=== PATIENT | male | born 1955 | race Caucasian/White ===

== ENCOUNTER → 2019-04-17 | Outpatient (CLI) | payer MEDICARE, BC ==
[~2019-04-17] MED LIST: ACET500T33 PO; ASPI81TA59 PO; ATEN50TA PO; CLOP75TA PO; CRESTOR10 MG PO; EZET10TA18 PO; HYDR-2679 PO; INSU100I13 SQ; INSU100V8 SQ; LEVO112T4 PO; LEVO137T3 PO; LOSA-73 PO
--- NOTE | 2019-04-17 18:56 | PAIN ---
DATE OF SERVICE: INITIAL CONSULTATION FOR PAIN CLINIC CHIEF COMPLAINT: Low back and bilateral lower extremity pain. HISTORY OF PRESENT ILLNESS: This is a 64-year-old male who presents with history of pain in the low back and bilateral lower extremities for many years, worse over the past 5-6 years with increasing pain in the low back status post lumbar laminectomy in 2003 with good results at that time. The patient reports the pain has returned in the low back and bilateral lower extremities, mostly in the posterior gluteus, posterior thighs, posterior calves. The patient reports it is sharp, it is a constant, stabbing, throbbing, shooting, radiating, tingling, cramping and burning and aching and cold at times. The patient reports it awakens him from sleep about 3 or 4 times a night, does not affect the bowel or bladder control, does affect his ability to walk. He is using a cane in his right hand. The patient reports he has had epidural injections in the past and done very well, also physical therapy in the past and chiropractic treatments. He is doing some exercise currently, but no formal physical therapy recently. The patient rates his disability from 0-10, 10 being the worst, as an 8 on a scale of 10 with family and home responsibilities, 8 with recreation and social activity, occupation and sexual behavior and life support activities, and 5 with self-care activities. The patient has not had any recent MRI scan but older scan showing significant spinal stenosis and degenerative disk disease as well as previous surgery. The patient reports no loss of motor function, but significant fatigability of the lower extremities with any ambulation greater than 5-10 minutes, better with sitting or resting, but again is awakening him from sleep about 3 or 4 times a night and has been for the past several months. PAST MEDICAL HISTORY: Significant for diabetes, Graves' disease, hypertension, gastroesophageal reflux, kidney insufficiency, coronary artery disease, arthritis. PREVIOUS SURGERY: Include bilateral cataract extractions, ankle surgery, appendectomy, lumbar surgery in 2003, coronary artery bypass graft x 5 in 2016 and cardiac stents placed in 2017. The patient was placed on Plavix at that time. CURRENT MEDICATIONS: Include Plavix, levothyroxine, and Crestor, Zetia, losartan, daily baby aspirin, insulin. ALLERGIES: The patient has no known drug allergies. FAMILY HISTORY: Significant for diabetes, heart disease, hypertension. SOCIAL HISTORY: The patient drinks alcohol very rarely. Does not smoke or use any illegal, illicit or recreational drugs. He is , lives with his spouse and lives locally in [place], [place]. REVIEW OF SYSTEMS: The patient's review of systems is positive for those items mentioned in history of present illness. All systems reviewed and otherwise negative. It is complete, full and well documented on the patient's chart. PHYSICAL EXAMINATION: VITAL SIGNS: The patient's blood pressure 131/62, pulse 85, respirations 18, temperature 97.9 degrees Fahrenheit, height is 5 feet 8 inches, weight is 220 pounds. GENERAL: The patient is awake, alert, oriented, appropriate, very pleasant demeanor. HEENT: Shows normocephalic, atraumatic. Extraocular movements are intact and symmetrical. Oral cavity: Mucous membranes are moist and pink. Dentition is intact. NECK: Shows anterior throat supple without palpable lymphadenopathy noted. Swallow reflex symmetrical. CHEST: Shows normal on inspection. Breath sounds clear to auscultation bilaterally. HEART: Shows S1, S2 clear. No murmurs auscultated. ABDOMEN: Soft, nontender, nondistended. No palpable organomegaly is noted. No rebound or guarding demonstrated. BACK: Shows spine grossly in the midline. Normal appearing thoracic kyphosis and lumbar lordotic curvature is slightly flattened with well-healed surgical scarring noted. Lumbar paraspinous muscle shows symmetrical on inspection, on palpation shows some moderate tenderness diffusely bilaterally, but only diffusely without radiation. The patient has good rotational motion of lumbar spine, both laterally as well as extension and flexion without difficulty. Lower extremities show deep tendon reflexes at 1+ in the patellar and tendo-calcaneus tendon. Motor exam is strong with dorsiflexion and extension rated at 5/5 and equal and symmetrical bilaterally with quadriceps, hamstring and dorsiflexion and extension. Peripheral pulses are 1+ posterior tibia. No peripheral edema is noted. Lower extremities are warm and dry to touch, equal in color and appearance. Straight leg raise noted to be negative for reproduction of radicular symptoms bilaterally. Gaenslen's and Darwin's maneuvers are negative bilaterally as well. The patient is able to stand, has difficulty standing from a seated position as he favors his right lower extremity using a cane in his right hand and does walk with a limp with his right leg favored. The patient's skin shows warm and dry, good turgor. No edema. No sores, rashes or bruising. IMPRESSION: 1. This is a 64-year-old male with a long history of low back pain, bilateral lower extremity pain in a radicular fashion. 2. MRI scan as noted. 3. Coronary artery disease. 4. Diabetes. 5. Hypertension. 6. Arthritis. PLAN: Options were discussed with the patient including conservative medical management, physical therapies, interventional techniques and he would like to proceed with interventional techniques. We will check with his athletic monitor first to clear having him hold the Plavix for 7 days prior to potential caudal epidural steroid injection. The patient will keep taking this until notified. We will wait to get clearance from his athletic monitor. If deemed safe and appropriate, we will have him hold this for 7 days and return for caudal epidural steroid injection at that time. MANA BAUGH MD DR: CHANCE/petty JOB#: [id number] / [id number]
== END | disposition home or self-care (01) ==
LOC: PNCL 08:33
PROVIDERS: ATTEND Anesthesiology
DX: M54.5 Low back pain (principal); M79.662 Pain in left lower leg; M79.661 Pain in right lower leg; E11.9 Type 2 diabetes mellitus without complications; E05.00 Thyrotoxicosis with diffuse goiter without thyrotoxic crisis or storm; I10 Essential (primary) hypertension; I25.10 Atherosclerotic heart disease of native coronary artery without angina pectoris; K21.9 Gastro-esophageal reflux disease without esophagitis; M19.90 Unspecified osteoarthritis, unspecified site; Z95.1 Presence of aortocoronary bypass graft; Z90.49 Acquired absence of other specified parts of digestive tract; Z72.89 Other problems related to lifestyle
CPT/HCPCS: G0463

== ENCOUNTER → 2019-05-12 | Outpatient (CLI) | payer MEDICARE, BC ==
[~2019-05-12] MED LIST changes: +IOHEXOL 180 MG/ML 10 ML VIAL. ONE; +methylPREDNISolone ACETATE 40 MG/ML VIAL. ONE; +methylPREDNISolone ACETATE 80 MG/ML VIAL. ONE
--- NOTE | 2019-05-13 05:04 | PAIN ---
DATE OF SERVICE: 05/12/2019 PHI DIAGNOSES: Lumbar radiculopathy with lumbar degenerative disk disease, lumbar spinal stenosis and post-lumbar laminectomy syndrome. 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 The patient reports it is tingling, burning, cramping, stabbing, sharp and shooting, on and off in intensity, but always present in some respect. The patient reports it is an 8 on a scale of 10 at its worst, 8 on average, 7 at its least in the last week and is an 8 today. The patient reports no new motor or sensory deficits, no new bowel or bladder incontinence or other complaints. PHYSICAL EXAMINATION: VITAL SIGNS: The patient's blood pressure is 150/87, pulse 71, respirations 18, temperature 97.8 degrees Fahrenheit, height is 5 feet 8 inches, weight is 211 pounds. GENERAL: The patient is awake, alert, oriented, appropriate, very pleasant demeanor. HEENT: Head shows normocephalic, atraumatic. Extraocular movements are intact and symmetrical. Oral cavity: Mucous membranes moist and pink. Dentition is intact. NECK: Shows anterior throat supple without palpable lymphadenopathy noted. Swallow reflex symmetrical. CHEST: Shows normal on inspection. Breath sounds clear to auscultation bilaterally. HEART: Shows S1, S2 clear. No murmurs auscultated. ABDOMEN: Soft, nontender, nondistended. No palpable organomegaly is noted. No rebound or guarding demonstrated. BACK: Shows spine grossly in the midline. Normal-appearing thoracic kyphosis, some minor flattening of lumbar lordotic curvature. Well-healed surgical scar in the midline. Lumbar paraspinous muscle shows symmetrical on inspection, on palpation shows some moderate tenderness diffusely bilaterally, but only diffusely without significant radiation. The patient has good rotational motion of lumbar spine as well as extension and flexion without significant pain. EXTREMITIES: Lower extremities show deep tendon reflexes 1+ in the patellar tendons and teno-calcanius tendons. Motor exam is approximately 4 on a scale of 5, but equal and symmetrical bilateral in dorsiflexion, extension, quadriceps and hamstring flexion. Peripheral pulses are 1+. No peripheral edema is noted. Options were discussed with the patient. The patient's old chart was reviewed as his current medication regimen updated. Current review of systems updated today as well. We will proceed with a caudal approach epidural steroid injection today with fluoroscopic guidance. Risks were again discussed including, but not limited to, bleeding, infection, possibility of epidural hematoma, subsequent neurologic compromise, dural puncture, headaches, spinal cord and/or nerve damage, side effects of steroid medication and poor results regarding pain control. The patient understands and wished to proceed. The patient will return to clinic in approximately 2 weeks for followup. She was counseled as to return appointment, activity level and side effects to be aware of. DIAGNOSES: Lumbar radiculopathy with lumbar degenerative disk disease and lumbar spinal stenosis and post-lumbar laminectomy syndrome. PROCEDURE: Lumbar epidural steroid injection, caudal approach, using C-arm fluoroscopic guidance under sterile prep and drape using local anesthetic. MEDICATION INJECTED: The patient received a total of 120 mg Depo-Medrol plus 10 mL of preservative-free normal saline and 2 mL of contrast. CONDITION AT DISCHARGE: Stable. The patient tolerated the procedure well, had no complications. MANA BAUGH MD DR: CHANCE/petty JOB#: [id number] / [id number]
== END ==
LOC: PNCL 14:00
PROVIDERS: ATTEND Anesthesiology
DX: M51.16 Intervertebral disc disorders with radiculopathy, lumbar region (principal); M96.1 Postlaminectomy syndrome, not elsewhere classified; M48.061 Spinal stenosis, lumbar region without neurogenic claudication
CPT/HCPCS: 62323; J1030; J1040; Q9965

== ENCOUNTER → 2019-06-02 | Outpatient (CLI) | payer MEDICARE, BC ==
[~2019-06-02] MED LIST changes: -EZET10TA18 PO; +EZET10TA20 PO
--- NOTE | 2019-06-02 23:39 | PAIN ---
DATE OF SERVICE: 06/02/2019 PROGRESS NOTE FOR PAIN CLINIC DIAGNOSES: Lumbar radiculopathy with lumbar degenerative disk disease, lumbar spinal stenosis and post-lumbar laminectomy syndrome. SUBJECTIVE: The patient is a 64-year-old male who came for followup status post lumbar caudal epidural steroid injection x 1. The patient reports about 60% improvement in his low back and bilateral lower extremity pain, is increasing in his activity, walking greater distances, doing work activities, household activities, traveling with greater ease and comfort. The patient reports no new motor or sensory deficits, no new bowel or bladder incontinence or other complaints, is doing quite well, is very pleased. He is sleeping better at night, but it does awaken him from sleep occasionally, but he is doing much better overall. The patient reports no new motor or sensory deficits or changes. No new bowel or bladder incontinence. PHYSICAL EXAMINATION: VITAL SIGNS: The patient's blood pressure is 124/86, pulse 75, respirations are 18, temperature 98.0 degrees Fahrenheit, height is 5 feet 8 inches, weight is 205 pounds. The patient rates his pain as a 6 on a scale of 10 at its worst, 5 on average and a 5 at its least and is a 5 today. The patient reports the pain is tingling, burning, cramping, stabbing in the low back, shooting in the lower extremities, mostly in the posterior gluteus, posterior thighs bilaterally. HEENT: Shows normocephalic, atraumatic. Extraocular movements are intact and symmetrical. Oral cavity: Mucous membranes moist and pink. Dentition is intact. NECK: Shows anterior throat supple without palpable lymphadenopathy noted. Swallow reflex symmetrical. CHEST: Shows normal on inspection. Breath sounds are clear to auscultation bilaterally. HEART: Shows S1, S2 clear. No murmurs auscultated. ABDOMEN: Soft, nontender, nondistended. No palpable organomegaly is noted. No rebound or guarding demonstrated. BACK: Shows spine grossly in the midline. Normal appearing thoracic kyphosis and lumbar lordotic curvature. Lumbar paraspinous muscle shows symmetrical on inspection, well-healed surgical scars again noted in the midline. With palpation shows some moderate tenderness diffusely in the low lumbar distribution, but only diffusely without radiation. EXTREMITIES: Lower extremities show deep tendon reflexes at 1+ in the patellar and tendo calcaneus tendons are equal. Motor exam is approximately 4 on a scale of 5, but symmetrical with dorsiflexion, extension, quadriceps and hamstring flexion. Peripheral pulses are 1+ posterior tibia. No peripheral edema is noted. The patient is walking with a cane. He holds cane in his right hand, does have a bit of a limp favoring the right lower extremity. Options were discussed with the patient. The patient's old chart was reviewed as her current medication regimen updated. Current review of systems updated today as well. We will proceed with a second in the series of caudal approach epidural steroid injection today with fluoroscopic guidance. Risks were again discussed including, but not limited to bleeding, infection, possibility of epidural hematoma, subsequent neurological compromise, dural puncture, headaches, spinal cord and/or nerve damage, side effects of steroid medication and poor results regarding pain control. The patient understands and wished to proceed. The patient will return to clinic in approximately 2 weeks for followup. He was counseled as to return appointment, activity level and side effects to be aware of. DIAGNOSES: Lumbar radiculopathy with lumbar degenerative disk disease, lumbar spinal stenosis and post-lumbar laminectomy syndrome. PROCEDURE: Lumbar epidural steroid injection, caudal approach using C-arm fluoroscopic guidance under sterile prep and drape using local anesthetic. MEDICATION INJECTED: A total of 120 mg Depo-Medrol plus 10 mL of preserved free of normal saline, 2 mL of contrast. CONDITION AT DISCHARGE: Stable. The patient tolerated procedure well, had no complications. MANA BAUGH MD DR: CHANCE/petty JOB#: [id number] / [id number]
== END ==
LOC: PNCL 13:56
PROVIDERS: ATTEND Anesthesiology
DX: M51.16 Intervertebral disc disorders with radiculopathy, lumbar region (principal); M48.061 Spinal stenosis, lumbar region without neurogenic claudication; M96.1 Postlaminectomy syndrome, not elsewhere classified
CPT/HCPCS: 62323; J1030; J1040; Q9965

== ENCOUNTER → 2020-05-02 | Outpatient (CLI) | payer MEDICARE ==
[~2020-05-02] MED LIST changes: -LEVO112T4 PO; +LEVO112T49 PO
--- NOTE | 2020-05-02 09:21 | PDOC ---
Progress Note - Pain Clinic Date of Service: DOS: DATE: 05/02/20 TIME: 09:16 Diagnosis: Dx: Lumbar radiculopathy lumbar spinal stenosis lumbar degenerative disc disease and lumbar postlaminectomy syndrome History or Present Illness: HPI: 65-year-old male returns for follow-up status post caudal epidural steroid injection x2. Last seen May 2019 patient reports did very well about 90% improvement in his low back and left lower extremity pain. Patient ports the pain is increasing now is been about 11 months and his last injection did very well for almost a year patient reports he was doing distance walking better activities at home traveling with greater ease and comfort without significant increase in pain. Patient reports now the pain is returning in the low back le ft lower extremity posterior gluteus posterior lateral thigh lateral anterior thigh and posterior calf described as burning stabbing sharp shooting radiating severe at times worse with activity standing walking changing positions. Patient which wakes him from sleep about every 3-4 hours rates his pain is an 8 on scale 10 is worse over the past week 8 on average 8 at its least is an 8 today. Patient reports no new motor or sensory deficits no bowel or bladder incontinence or other complaints. Patient recently had a sacroiliac joint injection with his PMR physician which did help by about 20%. Physical Exam: VS: Blood pressure is 160/96 pulse 77 respirations are 18 temperature 98.1 F height 5 foot 8 inches weight is 205 pounds PE: PHYSICAL EXAMINATION: GENERAL: The patient is awake, alert, oriented, appropriate, very pleasant demeanor HEENT: Shows normocephalic, atraumatic. Extraocular movements are intact and symmetrical. Oral cavity: Mucous membranes moist and pink. Dentition is intact. NECK: Shows anterior throat supple without palpable lymphadenopathy noted. Swallow reflex symmetrical. CHEST: Shows normal on inspection. Breath sounds are clear bilaterally, no rales rhonchi or wheezes auscultated. HEART: Shows S1, S2 clear. No murmurs auscultated. ABDOMEN: Soft, nontender, nondistended. No palpable organomegaly is noted. No rebound or guarding demonstrated. BACK: Shows spine grossly in the midline. Normal-appearing cervical lordotic curvature. There is slightly increased thoracic kyphosis, some minor flattening of the lumbar lordotic curvature. Lumbar paraspinous muscles show symmetrical on inspection, on palpation shows some moderate tenderness diffusely throughout the upper, middle and lower distribution of the paraspinous muscles bilaterally and also into the lower thoracic paraspinous musculature, but without specific trigger points, without radiation of pain. The patient has good rotational motion of the lumbar spine, both laterally as well as extension and flexion without significant difficulty. No tenderness over the spinous processes, sacrum or sacroiliac regions. EXTREMITIES: Lower extremities show deep tendon reflexes 1+ in the patellar and tendo calcaneus tendons. Motor exam is 4 on a scale of 5 with right dorsiflexion, extension, quadriceps and hamstring flexion and 4/5 on the left. Peripheral pulses are 1+ posterior tibial. No peripheral edema is noted bilaterally. Lower extremities are warm and dry to touch, equal in color and appearance. Straight leg raise noted to be negative on the right, left side is negative as well.. Gaenslen's and Darwin's maneuvers are negative as well. The patient is able to stand, walks with a significant favoring gait favoring left lower extremity uses a cane in his right hand.. SKIN: Shows warm and dry, good turgor. No edema. No sores, rashes or bruising throughout. Procedure: Procedure: Options discussed with the patient. Patient will chart was reviewed his current medication regimen updated current review of systems updated today as well. We will proceed with a caudal approach epidural steroid injection today with fluoroscopic guidance. Risks are again discussed including but not limited to bleeding infection possibility of epidural hematoma subsequent neurological compromise dural puncture headache spinal cord and or nerve damage side effects of steroid medication and poor results chronic pain control. Patient understands wishes to proceed. Patient will return to clinic in approximately 2 weeks for follow-up. Was counseled as to return appointment activity level and side effects to be aware of. Medication Injected: Med Injected: Procedure is lumbar epidural steroid injection, caudal approach, under local anesthetic using sterile prep and drape at the caudal level using C-arm fluoroscopic guidance in both AP and lateral views medications injected is 120 mg Depo-Medrol + 10 mL preservative-free normal saline and 2 mL contrast- condition at discharge is stable patient tolerated procedure well had no complications. Condition at Discharge: Condition at Discharge: Condition at discharge is stable patient tolerated well had no complications. MANA BAUGH MD May 02, 2020 09:21
== END | disposition home or self-care (01) ==
LOC: PNCL 08:32
PROVIDERS: ATTEND Anesthesiology
DX: M51.16 Intervertebral disc disorders with radiculopathy, lumbar region (principal); M48.061 Spinal stenosis, lumbar region without neurogenic claudication; M96.1 Postlaminectomy syndrome, not elsewhere classified; I10 Essential (primary) hypertension; E11.9 Type 2 diabetes mellitus without complications; K21.9 Gastro-esophageal reflux disease without esophagitis; Z88.8 Allergy status to other drugs, medicaments and biological substances; Z79.899 Other long term (current) drug therapy
CPT/HCPCS: 62323; J1030; J1040; Q9965

== ENCOUNTER → 2020-05-16 | Outpatient (CLI) | payer MEDICARE ==
[~2020-05-16] MED LIST changes: +CRESTOR40 MG PO; -IOHEXOL 180 MG/ML 10 ML VIAL. ONE
--- NOTE | 2020-05-16 09:48 | PDOC ---
Progress Note - Pain Clinic Date of Service: DOS: DATE: 05/16/20 TIME: 09:44 Diagnosis: Dx: Lumbar radiculopathy with lumbar spinal stenosis lumbar degenerative disc disease and lumbar postlaminectomy syndrome Cervical radiculopathy with cervical degenerative disease and cervical spinal stenosis History or Present Illness: HPI: 65-year-old male returns follow-up status post caudal epidural steroid injection x1. Patient reports about 50% improvement overall with the back and the bilateral hips and legs patient reports pain is returning now over the past week or so but initially did very well he was lying on his side when he is sleeping is waking her from sleep still but not nearly as frequently. Patient reports pain is a 5 on a scale of 10 at its worst least an average and is a 5 today patient describes as burning and stabbing shooting in the low back and legs slightly more on the left and the right posterior gluteus posterior thighs and calves with walking standing patient reports some difficulty with balance in the mornings when he first gets up specially with his left leg. Reports no new motor or sensory deficits no new bowel bladder incontinence or other complaints. Physical Exam: VS: Blood pressure is 174/107 pulse 74 respirations 20 temperature 90.1 F weight is 206 pounds height is 5 feet 8 inches PE: PHYSICAL EXAMINATION: GENERAL: The patient is awake, alert, oriented, appropriate, very pleasant demeanor HEENT: Shows normocephalic, atraumatic. Extraocular movements are intact and symmetrical. Oral cavity: Mucous membranes moist and pink. NECK: Shows anterior throat supple without palpable lymphadenopathy noted. Swallow reflex symmetrical. CHEST: Shows normal on inspection. Breath sounds are clear bilaterally, no rales rhonchi or wheezes auscultated. HEART: Shows S1, S2 clear. No murmurs auscultated. ABDOMEN: Soft, nontender, nondistended. No palpable organomegaly is noted. No rebound or guarding demonstrated. BACK: Shows spine grossly in the midline. Normal-appearing cervical lordotic curvature. There is slightly increased thoracic kyphosis, some minor flattening of the lumbar lordotic curvature, with well-healed surgical scarring noted. Lumbar paraspinous muscles show symmetrical on inspection, on palpation shows some moderate tenderness diffusely throughout the upper, middle and lower distribution of the paraspinous muscles bilaterally without specific trigger points, without radiation of pain. The patient has good rotational motion of the lumbar spine, both laterally as well as extension and flexion without significant difficulty. No tenderness over the spinous processes, sacrum or sacroiliac regions. EXTREMITIES: Lower extremities show deep tendon reflexes 1+ in the patellar and tendo calcaneus tendons. Motor exam is 4 on a scale of 5 with right dorsiflexion, extension, quadriceps and hamstring flexion and 4/5 on the left. Peripheral pulses are 1+ posterior tibial. No peripheral edema is noted bilaterally. Lower extremities are warm and dry to touch, equal in color and appearance. SKIN: Shows warm and dry, good turgor. No edema. No sores, rashes or bruising throughout. Procedure: Procedure: Options were discussed with the patient. Patient will chart reviewed his his current medication regimen updated current review of systems updated today as well. We will proceed with a second in the series caudal approach epidural steroid injection today with fluoroscopic guidance risks were again discussed including but not limited to bleeding infection possibility of epidural hematoma subsequent neurological compromise dural puncture headache spinal cord and or nerve damage side effects of steroid medication and portal screening pain control. Patient understands wished to proceed. Patient return to clinic in possibly 2 weeks for follow-up with calcis return appointment activity level and side effects to be aware of. Medication Injected: Med Injected: Procedure is lumbar epidural steroid injection under local anesthetic using sterile prep and drape at the caudal level using C-arm fluoroscopic guidance in both AP and lateral views medications injected is 120 mg Depo-Medrol + 10mL preservative-free normal saline and 2 mL contrast- condition at discharge is stable patient tolerated procedure well had no complications. Condition at Discharge: Condition at Discharge: Condition at discharge stable patient tolerated the procedure well had no complications MANA BAUGH MD May 16, 2020 09:48
== END | disposition home or self-care (01) ==
LOC: PNCL 08:31
PROVIDERS: ATTEND Anesthesiology
DX: M51.16 Intervertebral disc disorders with radiculopathy, lumbar region (principal); M48.061 Spinal stenosis, lumbar region without neurogenic claudication; M48.02 Spinal stenosis, cervical region; M96.1 Postlaminectomy syndrome, not elsewhere classified; I10 Essential (primary) hypertension; E11.9 Type 2 diabetes mellitus without complications; K21.9 Gastro-esophageal reflux disease without esophagitis; Z98.890 Other specified postprocedural states; Z79.899 Other long term (current) drug therapy
CPT/HCPCS: 62323; J1030; J1040

== ENCOUNTER → 2020-09-13 | Outpatient (CLI) | payer MEDICARE ==
[~2020-09-13] MED LIST changes: +IOHEXOL 180 MG/ML 10 ML VIAL. ONE
--- NOTE | 2020-09-13 08:11 | PDOC ---
Progress Note - Pain Clinic Date of Service: DOS: DATE: 09/13/20 TIME: 08:06 Diagnosis: Dx: Lumbar radiculopathy with lumbar spinal stenosis lumbar degenerative disc disease and post lumbar laminectomy syndrome Cervical radiculopathy with cervical degenerative disease and cervical spinal stenosis History or Present Illness: HPI: 65-year-old male returns for follow-up status post caudal epidural steroid action x2 last seen May 16, 2020. Patient reports did very well after last injection with 85% improvement until about 2 weeks ago when he fell walking across a driveway with his cane slipped and he went down his left side patient reports before that he is doing much better increase distance walking doing household activities travel with greater ease and comfort patient ports now the pain is returning the low back and bilateral lower extremities worse on the left than the right posterior gluteus posterior thigh posterior calves bilaterally patient reports is an 8 on scale 10 is worse over the past week 8 on average 7 its least is an 8 today. Patient scribes the pain is aching sharp shooting stabbing tingling burning constant and severe with walking standing is keeping him awake at night from sleeping about every 1-2 hours it awakens him. Patient reports no new motor or sensory deficits no bowel or bladder incontinence patient also has significant pain base the neck and shoulder especially on the r ight side. Physical Exam: VS: Blood pressure 144/80 pulse 74 respirations 18 temperature 98.2 F height is 5 feet 8 inches weight is 205 pounds PE: PHYSICAL EXAMINATION: GENERAL: The patient is awake, alert, oriented, appropriate, very pleasant demeanor HEENT: Shows normocephalic, atraumatic. Extraocular movements are intact and symmetrical. Oral cavity: Mucous membranes moist and pink. NECK: Shows anterior throat supple without palpable lymphadenopathy noted. Swallow reflex symmetrical. CHEST: Shows normal on inspection. Breath sounds are clear bilaterally, no rales rhonchi or wheezes auscultated. HEART: Shows S1, S2 clear. No murmurs auscultated. ABDOMEN: Soft, nontender, nondistended, obese. No palpable organomegaly is noted. No rebound or guarding demonstrated. BACK: Shows spine grossly in the midline. Normal-appearing cervical lordotic curvature. There is slightly increased thoracic kyphosis, some minor flattening of the lumbar lordotic curvature. Lumbar paraspinous muscles show symmetrical on inspection, on palpation shows some moderate tenderness diffusely throughout the upper, middle and lower distribution of the paraspinous muscles without specific trigger points, without radiation of pain. The patient has good rotational motion of the lumbar spine, both laterally as well as extension and flexion without significant difficulty. No tenderness over the spinous processes, sacrum or sacroiliac regions. EXTREMITIES: Lower extremities show deep tendon reflexes 1+ in the patellar and tendo calcaneus tendons. Motor exam is 4 on a scale of 5 with right dorsiflexion, extension, quadriceps and hamstring flexion and 4/5 on the left. Peripheral pulses are 1+ posterior tibial. No peripheral edema is noted bilaterally. Lower extremities are warm and dry to touch, equal in color and appearance. SKIN: Shows warm and dry, good turgor. No edema. No sores, rashes or bruising throughout. Procedure: Procedure: Options were discussed with the patient. Patient's old chart reviewed his current medication regimen updated current review of systems updated today as well. We will proceed with a third in the series caudal approach epidural steroid injection today with fluoroscopic guidance. Risks were discussed including but not limited to: Bleeding, infection, possibility of epidural hematoma and subsequent neurological compromise, dural puncture, headaches, spinal cord and/or nerve damage, side effects of steroid medication, and poor results regarding pain control. Patient understands wished to proceed. Patient return to clinic in approximately 4 weeks for follow-up was counseled as return appointment activity level and side effects to be aware of. Medication Injected: Med Injected: Procedure is lumbar epidural steroid injection under local anesthetic using sterile prep and drape at the caudal level using C-arm fluoroscopic guidance in both AP and lateral views medications injected is 120 mg Depo-Medrol + 10 mL preservative-free normal saline and 2 mL contrast- condition at discharge is stable patient tolerated procedure well had no complications. Condition at Discharge: Condition at Discharge: Condition at discharge stable, patient tolerated procedure well and had no complications. MANA BAUGH MD Sep 13, 2020 08:11
== END | disposition home or self-care (01) ==
LOC: PNCL 07:25
PROVIDERS: ATTEND Anesthesiology
DX: M51.16 Intervertebral disc disorders with radiculopathy, lumbar region (principal); M48.061 Spinal stenosis, lumbar region without neurogenic claudication; M96.1 Postlaminectomy syndrome, not elsewhere classified; M50.123 Cervical disc disorder at C6-C7 level with radiculopathy; M48.02 Spinal stenosis, cervical region; Z98.890 Other specified postprocedural states; Z91.041 Radiographic dye allergy status
CPT/HCPCS: 62323; J1030; J1040; Q9965

== ENCOUNTER → 2020-11-21 | Outpatient (CLI) | payer MEDICARE ==
--- NOTE | 2020-11-21 08:43 | PDOC ---
Progress Note - Pain Clinic Date of Service: DOS: DATE: 11/21/20 TIME: 08:40 Diagnosis: Dx: Lumbar radiculopathy with lumbar spinal stenosis lumbar degenerative disease lumbar postlaminectomy syndrome Cervical radiculopathy with cervical degenerative disease and cervical spinal stenosis History or Present Illness: HPI: 65-year-old male returns for follow-up status post caudal epidural steroid injec tion last seen September 13, 2020. Patient reports did very well about 80% improvement for almost 2 months following the injection with pain returning down the low back and patient left lower extremity posterior gluteus posterior thigh lateral thigh as well as some on the right posterior gluteus as well patient reports is an 8 on scale 10 is worse over the past week 7 on average 7 its least is a 7 today. Patient reports initially doing much better doing walking distances household activities travel with greater ease and comfort sleeping better at night but now is beginning to awaken from sleep about every 4-5 hours patient rates the pain as an 8 on scale 10 is worst currently patient reports sharp and dull alternating tingling and burning in the legs as well as radiating the legs which can be severe with walking and standing. Patient is using a cane in his right hand ambulate. Patient reports no new motor or sensory deficits no new bowel or bladder incontinence or other complaints. Physical Exam: VS: Blood pressure is 134/80 pulse 75 respirations 18 temperature 98.1 F height 8 inches weight is 205 pounds PE: PHYSICAL EXAMINATION: GENERAL: The patient is awake, alert, oriented, appropriate, very pleasant demeanor HEENT: Shows normocephalic, atraumatic. Extraocular movements are intact and symmetrical. Oral cavity: Mucous membranes moist and pink. NECK: Shows anterior throat supple without palpable lymphadenopathy noted. Swallow reflex symmetrical. CHEST: Shows normal on inspection. Breath sounds are clear bilaterally no rales or rhonchi. HEART: Shows S1, S2 clear. No murmurs auscultated. ABDOMEN: Soft, nontender, nondistended, obese. No palpable organomegaly is noted. No rebound or guarding demonstrated. BACK: Shows spine grossly in the midline. Normal-appearing cervical lordotic curvature. There is slightly increased thoracic kyphosis, some minor flattening of the lumbar lordotic curvature. Lumbar paraspinous muscles show symmetrical on inspection, on palpation shows some moderate tenderness diffusely throughout the upper, middle and lower distribution of the paraspinous muscles without specific trigger points, without radiation of pain. The patient has good rotational motion of the lumbar spine, both laterally as well as extension and flexion without significant difficulty. EXTREMITIES: Lower extremities show deep tendon reflexes 1+ in the patellar and tendo calcaneus tendons. Motor exam is 4 on a scale of 5 with right dorsiflexion, extension, quadriceps and hamstring flexion and 4/5 on the left. Peripheral pulses are 1+ posterior tibial. No peripheral edema is noted bilaterally. Lower extremities are warm and dry to touch, equal in color and appearance. SKIN: Shows warm and dry, good turgor. No edema. No sores, rashes or bruising throughout. Procedure: Procedure: Options were discussed with the patient. Patient will chart reviews his current medication regimen updated current review of systems updated today as well. We will proceed with a first in the series caudal approach epidural steroid injection today. Risks were discussed including but not limited to: Bleeding, infection, possibility of epidural hematoma and subsequent neurological compromise, dural puncture, headaches, spinal cord and/or nerve damage, side effects of steroid medication, and poor results regarding pain control. Patient understands and wished to proceed. Patient will return to clinic in approximate 2 weeks for follow-up, was counseled as to return appointment activity level and side effects to be aware of. Medication Injected: Med Injected: Procedure is lumbar epidural steroid injection under local anesthetic using sterile prep and drape at the caudal level using C-arm fluoroscopic guidance in both AP and lateral views medications injected is 120 mg Depo-Medrol + 10 mL p reservative-free normal saline and 2 mL contrast- condition at discharge is stable patient tolerated procedure well had no complications. Condition at Discharge: Condition at Discharge: Condition at discharge stable, patient tolerated the procedure well and had no complications. MANA BAUGH MD Nov 21, 2020 08:43
--- NOTE | 2020-11-21 08:44 | PDOC4 ---
PROCEDURE Procedure Patient was consented for caudal epidural steroid injection. Risks were dis cussed including but not limited to: Bleeding, infection, possibility of epidural hematoma and subsequent neurological compromise, dural puncture, headaches, spinal cord and/or nerve damage, side effects of steroid medication, and poor results regarding pain control. Patient understands and wished to proceed. Procedure is lumbar epidural steroid injection under local anesthetic using sterile prep and drape at the caudal level using C-arm fluoroscopic guidance in both AP and lateral views medications injected is 120 mg Depo-Medrol + 10 mL preservative-free normal saline and 2 mL contrast- condition at discharge is stable patient tolerated procedure well had no complications. MANA BAUGH MD Nov 21, 2020 08:44
== END | disposition home or self-care (01) ==
LOC: PNCL 07:55
PROVIDERS: ATTEND Anesthesiology
DX: M51.16 Intervertebral disc disorders with radiculopathy, lumbar region (principal); M48.061 Spinal stenosis, lumbar region without neurogenic claudication; M50.10 Cervical disc disorder with radiculopathy, unspecified cervical region; M48.02 Spinal stenosis, cervical region; M96.1 Postlaminectomy syndrome, not elsewhere classified; Z79.82 Long term (current) use of aspirin; Z79.4 Long term (current) use of insulin; Z79.899 Other long term (current) drug therapy; Z98.890 Other specified postprocedural states; Z91.041 Radiographic dye allergy status
CPT/HCPCS: 62323; J1030; J1040; Q9965

== ENCOUNTER → 2021-01-02 | Outpatient (CLI) | payer MEDICARE ==
--- NOTE | 2021-01-02 08:47 | PDOC ---
Progress Note - Pain Clinic Date of Service: DOS: DATE: 01/02/21 TIME: 08:44 Diagnosis: Dx: Lumbar radiculopathy with lumbar degenerative disc disease lumbar spinal stenosis and lumbar postlaminectomy syndrome Cervical radiculopathy with cervical degenerative disease and cervical spinal stenosis History or Present Illness: HPI: 65-year-old male returns for follow-up status post caudal approach epidural to injection x1. Patient reports about 75 to 80% improvement but not lasting as long as he has had in the past patient reports pain is returning in the low back and bilateral lower extremities posterior gluteus posterior thighs somewhat worse on the left than the right he has been increasing his activity with taking care of his great-grandchildren over the past few weeks. Patient reports that he still has some significant pain in the low back but overall did much better just did not have as much longevity 3 to 4 weeks instead of several months which he is generally used to getting better pain relief. Patient reports the pain is now in the low back and legs feels "different" is aching and shooting burning and stabbing the leg radiating the lower extremities patient rates his pain is 8 on scale 10 at all times over the past week worst least and average is 8 today. Patient reports no new motor or sensory deficits no bowel or bladder incontinence or other complaints. Physical Exam: VS: Blood pressure is 140/92 pulse 76 respirations 16 temperature is 98.0 F height is 5 feet 8 inches weight is 207 pounds PE: PHYSICAL EXAMINATION: GENERAL: The patient is awake, alert, oriented, appropriate, very pleasant demeanor HEENT: Shows normocephalic, atraumatic. Extraocular movements are intact and symmetrical. Oral cavity: Mucous membranes moist and pink. Dentition is intact. NECK: Shows anterior throat supple without palpable lymphadenopathy noted. Swallow reflex symmetrical. CHEST: Shows normal on inspection. Breath sounds are clear bilaterally, no rales or rhonchi. HEART: Shows S1, S2 clear. No murmurs auscultated. ABDOMEN: Soft, nontender, nondistended, obese. No palpable organomegaly is noted. No rebound or guarding demonstrated. BACK: Shows spine grossly in the midline. Normal-appearing cervical lordotic curvature. There is slightly increased thoracic kyphosis, some minor flattening of the lumbar lordotic curvature. Well-healed midline surgical scars noted in the lumbar distribution. Lumbar paraspinous muscles show symmetrical on inspection, on palpation shows some moderate tenderness diffusely throughout the upper, middle and lower distribution of the paraspinous muscles without specific trigger points, without radiation of pain. The patient has good rotational motion of the lumbar spine, both laterally as well as extension and flexion without significant difficulty. EXTREMITIES: Lower extremities show deep tendon reflexes 1+ in the patellar and tendo calcaneus tendons. Motor exam is 4 on a scale of 5 with right dorsiflexion, extension, quadriceps and hamstring flexion and 4/5 on the left. Peripheral pulses are 1+ posterior tibial. No peripheral edema is noted bilaterally. Lower extremities are warm and dry to touch, equal in color and appearance. SKIN: Shows warm and dry, good turgor. No edema. No sores, rashes or bruising throughout. Procedure: Procedure: Options discussed with the patient. Patient chart reviews his current medication regimen updated current review of systems updated today as well. We will proceed with a second in the series caudal approach epidural steroid injections today. Risks were discussed including but not limited to: Bleeding, infection, possibility of epidural hematoma and subsequent neurological compromise, dural puncture, headaches, spinal cord and/or nerve damage, side effects of steroid medication, and poor results regarding pain control. Patient understands and wished to proceed. Patient return to clinic in approximate 2 weeks for follow-up, was counseled as to return appointment activity level and side effects to be aware of. Medication Injected: Med Injected: Procedure is lumbar epidural steroid injection under local anesthetic using sterile prep and drape at the caudal level using C-arm fluoroscopic guidance in both AP and lateral views medications injected is 120 mg Depo-Medrol + 10 mL preservative-free normal saline and 2 mL contrast- condition at discharge is stable patient tolerated procedure well had no complications. Condition at Discharge: Condition at Discharge: Condition at discharge stable, patient alert procedure well and had no complications. MANA BAUGH MD Jan 02, 2021 08:47
== END | disposition home or self-care (01) ==
LOC: PNCL 07:56
PROVIDERS: ATTEND Anesthesiology
DX: M51.16 Intervertebral disc disorders with radiculopathy, lumbar region (principal); M48.061 Spinal stenosis, lumbar region without neurogenic claudication; M96.1 Postlaminectomy syndrome, not elsewhere classified; M50.10 Cervical disc disorder with radiculopathy, unspecified cervical region; M48.01 Spinal stenosis, occipito-atlanto-axial region; Z79.82 Long term (current) use of aspirin; Z79.899 Other long term (current) drug therapy; Z91.041 Radiographic dye allergy status
CPT/HCPCS: 62323; J1030; J1040; Q9965

== ENCOUNTER → 2021-02-06 | Outpatient (CLI) | payer MEDICARE ==
--- NOTE | 2021-02-06 09:27 | PDOC ---
Progress Note - Pain Clinic Date of Service: DOS: DATE: 02/06/21 TIME: :24 Diagnosis: Dx: Lumbar radiculopathy with lumbar degenerative disc disease lumbar spinal stenosis lumbar postlaminectomy syndrome Cervical radiculopathy with cervical degenerative disease and cervical spinal stenosis History or Present Illness: HPI: 65-year-old male returns for follow-up status post caudal epidural steroid injection x2. Patient reports he did very well for last injection about 80% improvement for about 3 weeks or so but the pain is been increasing in his low back and left lower extremity patient reports that his has been diagnosed with dystonia and has been having to help her quite a bit as her left side is quite weak and this is increased the pain in his low back and left leg over the past few weeks patient reports the pain is 8 on scale 10 is worse over the past week 7 on average 7 its least and is a 7 currently patient reports aching and shooting in the low back tingling and burning in the back itself stabbing in the leg radiating can be severe with walking and standing patient reports is becoming difficult to sleep at night but not every night patient reports initially was doing much better with distance walking doing household activities now he is using a cane in his right hand. Patient reports no new motor or sensory deficits no new bowel or bladder incontinence. Physical Exam: VS: Blood pressure is 154/86 pulse 67 respirations 18 temperature 98.0 F height is 5 feet 8 inches weight is 207 pounds PE: PHYSICAL EXAMINATION: GENERAL: The patient is awake, alert, oriented, appropriate, very pleasant demeanor HEENT: Shows normocephalic, atraumatic. Extraocular movements are intact and symmetrical. Oral cavity: Mucous membranes moist and pink. Dentition is intact. NECK: Shows anterior throat supple without palpable lymphadenopathy noted. Swallow reflex symmetrical. CHEST: Shows normal on inspection. Breath sounds are clear bilaterally, distant but no rales or rhonchi. HEART: Shows S1, S2 clear. No murmurs auscultated. ABDOMEN: Soft, nontender, nondistended, obese. No palpable organomegaly is n oted. No rebound or guarding demonstrated. BACK: Shows spine grossly in the midline. Normal-appearing cervical lordotic curvature. There is slightly increased thoracic kyphosis, some minor flattening of the lumbar lordotic curvature. Lumbar paraspinous muscles show symmetrical on inspection, on palpation shows some moderate tenderness diffusely throughout the upper, middle and lower distribution of the paraspinous muscles but without specific trigger points, without radiation of pain. The patient has good rotational motion of the lumbar spine, both laterally as well as extension and flexion without significant difficulty. EXTREMITIES: Lower extremities show deep tendon reflexes 1+ in the patellar and tendo calcaneus tendons. Motor exam is 4 on a scale of 5 with right dorsiflexion, extension, quadriceps and hamstring flexion and 4/5 on the left. Peripheral pulses are 1+ posterior tibial. No peripheral edema is noted bilaterally. Lower extremities are warm and dry to touch, equal in color and appearance. SKIN: Shows warm and dry, good turgor. No edema. No sores, rashes or bruising throughout. Procedure: Procedure: Options were discussed with the patient. Patient's old chart was reviewed his current medication regimen updated current review of systems updated today as well. We will proceed with a third in the series caudal approach epidural steroid injection today with fluoroscopic guidance. Risks were discussed including but not limited to: Bleeding, infection, possibility of epidural hematoma and subsequent neurological compromise, dural puncture, headaches, spinal cord and/or nerve damage, side effects of steroid medication, and poor results regarding pain control. Patient understands and wished to proceed. Patient will return to the clinic in approximate 2 weeks for follow-up, was counseled as to return appointment activity level and side effects to be aware of. Medication Injected: Med Injected: Procedure is lumbar epidural steroid injection under local anesthetic using sterile prep and drape at the caudal level using C-arm fluoroscopic guidance in both AP and lateral views medications injected is 120 mg Depo-Medrol +10mL preservative-free normal saline and 2 mL contrast- condition at discharge is stable patient tolerated procedure well had no complications. Condition at Discharge: Condition at Discharge: Condition at discharge stable, patient alert procedure well and had no complications. MANA BAUGH MD February 06, 2021 09:27
--- NOTE | 2021-02-06 09:28 | PDOC4 ---
PROCEDURE Procedure Patient was consented for caudal approach epidural steroid injection. Risks were discussed including but not limited to: Bleeding, infection, possibility of epidural hematoma and subsequent neurological compromise, dural puncture, headaches, spinal cord and/or nerve damage, side effects of steroid medication, and poor results regarding pain control. Patient understands and wished to proceed. Procedure is lumbar epidural steroid injection under local anesthetic using sterile prep and drape at the caudal level using C-arm fluoroscopic guidance in both AP and lateral views medications injected is 120 mg Depo-Medrol +10mL preservative-free normal saline and 2 mL contrast- condition at discharge is stable patient tolerated procedure well had no complications. MANA BAUGH MD February 06, 2021 09:28
== END | disposition home or self-care (01) ==
LOC: PNCL 08:32
PROVIDERS: ATTEND Anesthesiology
DX: M51.16 Intervertebral disc disorders with radiculopathy, lumbar region (principal); M48.061 Spinal stenosis, lumbar region without neurogenic claudication; M96.1 Postlaminectomy syndrome, not elsewhere classified; M50.10 Cervical disc disorder with radiculopathy, unspecified cervical region; M48.02 Spinal stenosis, cervical region; Z79.4 Long term (current) use of insulin; Z79.899 Other long term (current) drug therapy; Z91.041 Radiographic dye allergy status
CPT/HCPCS: 62323; J1030; J1040; Q9965

== ENCOUNTER → 2021-08-28 | Outpatient (CLI) | payer MEDICARE ==
--- NOTE | 2021-08-28 11:48 | PDOC ---
Progress Note - Pain Clinic Date of Service: DOS: DATE: 08/28/21 TIME: 11:45 Diagnosis: Dx: Lumbar radiculopathy with lumbar degenerative disease and lumbar spinal stenosis with lumbar postlaminectomy syndrome Cervical radiculopathy with cervical degenerative disease and cervical spinal stenosis History or Present Illness: HPI: 66-year-old male returns for follow-up status post previous colorectal steroid injections most recently seen February 06, 2021 patient reports 100% improvement after his last visit for several months pain returning now over the past month or so in the low back and left lower extremity posterior gluteus posterior thigh posterior calf patient reports is an 8 on scale 10 is worst average and a 6 at its least over the past week and is an 8 today. 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 Patient reports he recently had cholecystectomy which caused pancreatitis and was hospitalized in June with the pain began to get worse after released from the hospital in the low back and left lower extremity. Bladder incontinence at this time no motor deficits. Physical Exam: VS: Blood pressure is 152/88 pulse 81 respirations 18 temperature 98.8 F height 5 feet 8 inches weight is 198 pounds. PE: PHYSICAL EXAMINATION: GENERAL: The patient is awake, alert, oriented, appropriate, very pleasant in demeanor HEENT: Shows normocephalic, atraumatic. Extraocular movements are intact and symmetrical. Oral cavity: Mucous membranes moist and pink. NECK: Shows anterior throat supple without palpable lymphadenopathy noted. Swallow reflex symmetrical. CHEST: Shows normal on inspection. Breath sounds are clear bilaterally, distant but no rales or rhonchi. HEART: Shows S1, S2 clear. No murmurs auscultated. ABDOMEN: Soft, nontender, nondistended, obese. No palpable organomegaly is noted. BACK: Shows spine grossly in the midline. Normal-appearing cervical lordotic curvature. There is slightly increased thoracic kyphosis, some flattening of the lumbar lordotic curvature with well-healed surgical scarring noted. Lumbar paraspinous muscles show symmetrical on inspection, on palpation shows some moderate tenderness diffusely throughout the upper, middle and lower distribution of the paraspinous muscles without specific trigger points, without radiation of pain. The patient has good rotational motion of the lumbar spine, both laterally as well as extension and flexion without significant difficulty. EXTREMITIES: Lower extremities show deep tendon reflexes 1 in the patellar and tendo calcaneus tendons. Motor exam is 4 on a scale of 5 with right dorsiflexion, extension, quadriceps and hamstring flexion and 4/5 on the left. Peripheral pulses are 1+ posterior tibial. No peripheral edema is noted bilaterally. Lower extremities are warm and dry. SKIN: Shows warm and dry, good turgor. No edema. No sores, rashes or bruising throughout. Procedure: Procedure: Options discussed with patient. Patient old chart was reviewed as was his current medication regimen updated current review of systems updated today as well. We will proceed with a caudal approach epidural steroid injection today with fluoroscopic guidance. Risks were discussed including but not limited to: Bleeding, infection, possibility of epidural hematoma and subsequent neurological compromise, dural puncture, headaches, spinal cord and/or nerve damage, side effects of steroid medication, and poor results regarding pain control. Patient understands and wished to proceed. She will return to clinic in approximate 2 weeks for follow-up, was counseled as return appointment, activity, and side effect to be aware of. Medication Injected: Med Injected: Procedure is lumbar epidural steroid injection under local anesthetic using sterile prep and drape at the caudal level using C-arm fluoroscopic guidance in both AP and lateral views medications injected is 120 mg Depo-Medrol +10mL preservative-free normal saline and 2 mL contrast- condition at discharge is stable patient tolerated procedure well had no complications. Condition at Discharge: Condition at Discharge: Condition at discharge stable, patient tolerated procedure well and had no complications. MANA BAUGH MD Aug 28, 2021 11:48
--- NOTE | 2021-08-28 11:49 | PDOC4 ---
Procedure Note: ICD 10 Code: ICD 10 Code: M54.16 M51.36 M 48.06 M 96.1 Procedure Note: Patient was consented for caudal approach epidural steroid injection with fluoroscopic guidance. Risks were discussed including but not limited to: Bleeding, infection, possibility of epidural hematoma and subsequent neurological compromise, dural puncture, headaches, spinal cord and/or nerve damage, side effects of steroid medication, and poor results regarding pain control. Patient understands and wished to proceed. Procedure is lumbar epidural steroid injection under local anesthetic using sterile prep and drape at the caudal level using C-arm fluoroscopic guidance in both AP and lateral views medications injected is 120 mg Depo-Medrol +10mL preservative-free normal saline and 2 mL contrast- condition at discharge is stable patient tolerated procedure well had no complications. MANA BAUGH MD Aug 28, 2021 11:49
== END | disposition home or self-care (01) ==
LOC: PNCL 11:00
PROVIDERS: ATTEND Anesthesiology
DX: M51.16 Intervertebral disc disorders with radiculopathy, lumbar region (principal); M48.061 Spinal stenosis, lumbar region without neurogenic claudication; M96.1 Postlaminectomy syndrome, not elsewhere classified; M50.10 Cervical disc disorder with radiculopathy, unspecified cervical region; M48.02 Spinal stenosis, cervical region; Z79.82 Long term (current) use of aspirin; Z79.4 Long term (current) use of insulin; Z79.899 Other long term (current) drug therapy; Z91.041 Radiographic dye allergy status
CPT/HCPCS: 62323; J1030; J1040; Q9965

== ENCOUNTER → 2021-09-12 | Outpatient (CLI) | payer MEDICARE ==
--- NOTE | 2021-09-12 09:23 | PDOC4 ---
Procedure Note: ICD 10 Code: ICD 10 Code: M54.16 M51.36 M4 8.06 M 96.1 Procedure Note: Patient was consented for caudal approach epidural steroid injection with fluoroscopic guidance. Risks were discussed including but not limited to: Bleeding, infection, possibility of epidural hematoma and subsequent neurological compromise, dural puncture, headaches, spinal cord and/or nerve damage, side effects of steroid medication, and poor results regarding pain control. Patient understands and wished to proceed. Procedure is lumbar epidural steroid injection under local anesthetic using sterile prep and drape at the caudal level using C-arm fluoroscopic guidance in both AP and lateral views medications injected is 120 mg Depo-Medrol +10mL preservative-free normal saline and 2 mL contrast- condition at discharge is stable patient tolerated procedure well had no complications. MANA BAUGH MD Sep 12, 2021 09:23
--- NOTE | 2021-09-12 09:23 | PDOC ---
Progress Note - Pain Clinic Date of Service: DOS: DATE: 09/12/21 TIME: 09:20 Diagnosis: Dx: Lumbar radiculopathy with lumbar degenerative disease lumbar spinal stenosis and lumbar postlaminectomy syndrome Cervical radiculopathy with cervical degenerative disease and cervical spinal stenosis History or Present Illness: HPI: 66-year-old male returns for follow-up status post caudal epidural steroid injection x1. Patient reports about 50% improvement is increase his activity greater ease and comfort walking greater distances doing household activities greater ease and travel with much greater ease patient reports sleeping well at night does not awaken from sleep currently is very pleased with his progress thus far patient reports still has some pain in the low back into the left lower extremity posterior gluteus posterior thigh lateral thigh anterior thigh medial thigh rated as a 6 on scale 10 is worst over the past week 5 on average/and is a 5 today patient is no longer walking with his cane and is taking less p.o. every 6 as well. Patient is quite pleased with his progress thus far reports no new deficits no bowel or bladder incontinence. Physical Exam: VS: Blood pressure is 130/47 pulse 71 respirations 18 temperature 98.1 F height 5 feet 8 inches weight is 190 pounds. PE: PHYSICAL EXAMINATION: GENERAL: The patient is awake, alert, oriented, appropriate, very pleasant in demeanor HEENT: Shows normocephalic, atraumatic. Extraocular movements are intact and symmetrical. Oral cavity: Mucous membranes moist and pink. Dentition is intact. NECK: Shows anterior throat supple without palpable lymphadenopathy noted. Swallow reflex symmetrical. CHEST: Shows normal on inspection. Breath sounds are clear bilaterally, distant but no rales or rhonchi. HEART: Shows S1, S2 clear. No murmurs auscultated. ABDOMEN: Soft, nontender, nondistended. No palpable organomegaly is noted. BACK: Shows spine grossly in the midline. Normal-appearing cervical lordotic curvature. There is slightly increased thoracic kyphosis, some flattening of the lumbar lordotic curvature with well-healed surgical scarring. Lumbar p araspinous muscles show symmetrical on inspection, on palpation shows some moderate tenderness diffusely throughout the upper, middle and lower distribution of the paraspinous muscles without specific trigger points, without radiation of pain. The patient has good rotational motion of the lumbar spine, both laterally as well as extension and flexion without significant difficulty. EXTREMITIES: Lower extremities show deep tendon reflexes 1 in the patellar and tendo calcaneus tendons. Motor exam is 4 on a scale of 5 with right dorsiflexion, extension, quadriceps and hamstring flexion and 4/5 on the left. Peripheral pulses are 1+ posterior tibial. No peripheral edema is noted bilaterally. Lower extremities are warm and dry. SKIN: Shows warm and dry, good turgor. No edema. No sores, rashes or bruising throughout. Procedure: Procedure: Options were discussed with the patient. Patient chart reviewed his current medication regimen updated current review of systems updated today as well. We will proceed with a caudal epidural steroid injection today with fluoroscopic guidance. Risks were discussed including but not limited to: Bleeding, infection, possibility of epidural hematoma and subsequent neurological compromise, dural puncture, headaches, spinal cord and/or nerve damage, side effects of steroid medication, and poor results regarding pain control. Patient understands and wished to proceed. Return to clinic in approximate 2 weeks for follow-up, was counseled as to return appointment, activity level, and side effect to be aware of. Medication Injected: Med Injected: Procedure is lumbar epidural steroid injection under local anesthetic using sterile prep and drape at the caudal level using C-arm fluoroscopic guidance in both AP and lateral views medications injected is 120 mg Depo-Medrol +10mL preservative-free normal saline and 2 mL contrast- condition at discharge is stable patient tolerated procedure well had no complications. Condition at Discharge: Condition at Discharge: Condition at discharge is stable, patient tolerated the procedure well and had no complications. MANA BAUGH MD Sep 12, 2021 09:23
== END | disposition home or self-care (01) ==
LOC: PNCL 08:45
PROVIDERS: ATTEND Anesthesiology
DX: M51.16 Intervertebral disc disorders with radiculopathy, lumbar region (principal); M48.061 Spinal stenosis, lumbar region without neurogenic claudication; M96.1 Postlaminectomy syndrome, not elsewhere classified; M50.10 Cervical disc disorder with radiculopathy, unspecified cervical region; M48.02 Spinal stenosis, cervical region; Z79.82 Long term (current) use of aspirin; Z79.4 Long term (current) use of insulin; Z91.041 Radiographic dye allergy status
CPT/HCPCS: 62323; J1030; J1040; Q9965

== ENCOUNTER → 2022-01-04 | Outpatient (CLI) | payer MEDICARE, OTHER ==
[~2022-01-04] MED LIST changes: +DEXAMETHASONE PRES.FREE 10 MG/ML VIAL. ONE; -IOHEXOL 180 MG/ML 10 ML VIAL. ONE; -methylPREDNISolone ACETATE 40 MG/ML VIAL. ONE; -methylPREDNISolone ACETATE 80 MG/ML VIAL. ONE
--- NOTE | 2022-01-04 08:48 | PDOC ---
Progress Note - Pain Clinic Date of Service: DOS: DATE: 01/04/22 TIME: 08:45 Diagnosis: Dx: Lumbar radiculopathy with lumbar degenerative disc disease and lumbar spinal stenosis with lumbar postlaminectomy syndrome Cervical radiculopathy with cervical degenerative disease and cervical spinal stenosis Right wrist pain with osteoarthritis History or Present Illness: HPI: 66-year-old male returns for follow-up status post caudal epidural steroid injection x2. Patient reports about 80% improvement for about 3 months with the pain returning down the low back and left lower extremity posterior gluteus posterior thigh posterior calf worse with walking standing change positions patient reports prior to admission much better distance walking doing household activities travel with greater ease and comfort sleeping better at night patient reports now is waking up about every 4-6 hours he can usually reposition and get back to sleep. Patient reports pain is shooting in the left leg get tingling burning stabbing radiating can be severe and unbearable with standing and walking patient rates as a 10 on scale 10 is worse over the past week 8 on average 7 at its least is a 7 today. Patient also has new pain after a fall in his right wrist at the first carpometacarpal joint with some significant tenderness with motion of the thumb and the wrist itself. Patient reports he has been dropping items with the right hand and is painful although this fall was about a week and a half ago and has not gotten better with oral analgesics and stretching. Physical Exam: VS: Blood pressure is 140/94, pulse 84, respirations 18, temperature 90.4 F, height is 5 feet 8 inches, weight is 195 pounds. PE: PHYSICAL EXAMINATION: GENERAL: The patient is awake, alert, oriented, appropriate, very pleasant in demeanor HEENT: Shows normocephalic, atraumatic. Extraocular movements are intact and symmetrical. Oral cavity: Mucous membranes moist and pink. NECK: Shows anterior throat supple without palpable lymphadenopathy noted. Swallow reflex symmetrical. CHEST: Shows normal on inspection. Breath sounds are clear bilaterally. HEART: Shows S1, S2 clear. No murmurs auscultated. ABDOMEN: Soft, nontender, nondistended. No palpable organomegaly is noted. BACK: Shows spine grossly in the midline. Normal-appearing cervical lordotic curvature. There is mildly increased thoracic kyphosis, some moderate flattening of the lumbar lordotic curvature with well-healed surgical scarring noted. Lumbar paraspinous muscles show symmetrical on inspection, on palpation shows some moderate tenderness diffusely throughout the upper, middle and lower distribution of the paraspinous muscles without specific trigger points, without radiation of pain. The patient has good rotational motion of the lumbar spine, both laterally as well as extension and flexion without significant difficulty. EXTREMITIES: Lower extremities show deep tendon reflexes 1+ in the patellar and tendo calcaneus tendons. Motor exam is 4 on a scale of 5 with right dorsiflexion, extension, quadriceps and hamstring flexion and 4/5 on the left. Peripheral pulses are 1+ posterior tibial. No peripheral edema is noted bilaterally. Lower extremities are warm and dry. 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 Patient's right wrist shows significant tenderness over the carpometacarpal joint with palpation on the lateral aspect as well as the posterior aspect with difficulty with extension flexion of the thumb. Left side is normal. SKIN: Shows warm and dry, good turgor. No edema. No sores, rashes or bruising throughout. Procedure: Procedure: Options were discussed with the patient. Patient chart was reviewed his his current medication regimen updated current review of systems updated today as well. We will proceed with a caudal epidural steroid injection today with fluoroscopic guidance. Risks were discussed including but not limited to: Bleeding, infection, possibility of epidural hematoma and subsequent neurological compromise, dural puncture, headaches, spinal cord and/or nerve damage, side effects of steroid medication, and poor results regarding pain control. Patient understands and wished to proceed. Patient will return to the clinic in approximately 2 weeks for follow-up, was counseled as to return appointment, activity level, and side effects to be aware of. Medication Injected: Med Injected: Procedure is lumbar epidural steroid injection under local anesthetic using sterile prep and drape at the caudal level using C-arm fluoroscopic guidance in both AP and lateral views medications injected is 120 mg methylprednisolone +10mL preservative-free normal saline and 2 mL contrast- condition at discharge is stable patient tolerated procedure well had no complications. Condition at Discharge: Condition at Discharge: Condition at discharge stable, paced tolerated procedure well had no complications. MANA BAUGH MD Jan 04, 2022 08:48
--- NOTE | 2022-01-04 08:49 | PDOC4 ---
Procedure Note: ICD 10 Code: ICD 10 Code: M54.16 M51.36 M48.06 M96.1 Procedure Note: Patient was consented for caudal approach epidural steroid injection fluoroscopic guidance. Risks were discussed including but not limited to: Bleeding, infection, possibility of epidural hematoma and subsequent neurological compromise, dural puncture, headaches, spinal cord and/or nerve damage, side effects of steroid medication, and poor results regarding pain control. Patient understands and wished to proceed. Procedure is lumbar epidural steroid injection under local anesthetic using sterile prep and drape at the caudal level using C-arm fluoroscopic guidance in both AP and lateral views medications injected is 120 mg methylprednisolone +10mL preservative-free normal saline and 2 mL contrast- condition at discharge is stable patient tolerated procedure well had no complications. MANA BAUGH MD Jan 04, 2022 08:49
== END | disposition home or self-care (01) ==
LOC: PNCL 07:50
PROVIDERS: ATTEND Anesthesiology
DX: M51.16 Intervertebral disc disorders with radiculopathy, lumbar region (principal); M48.061 Spinal stenosis, lumbar region without neurogenic claudication; M50.10 Cervical disc disorder with radiculopathy, unspecified cervical region; M48.02 Spinal stenosis, cervical region; M96.1 Postlaminectomy syndrome, not elsewhere classified; M19.031 Primary osteoarthritis, right wrist; Z79.82 Long term (current) use of aspirin; Z79.899 Other long term (current) drug therapy; Z91.041 Radiographic dye allergy status; Z88.8 Allergy status to other drugs, medicaments and biological substances; Z98.890 Other specified postprocedural states
CPT/HCPCS: 62323; J1100